=== PATIENT | female | born 1960 | race Caucasian/White ===

== ENCOUNTER 2016-07-15 21:32 | Emergency (ER) | payer OTHER ==
[~2016-07-15 21:32] MED LIST: ASPIRIN EC81 M1 PO; BLM PO; LANTUS INS100 UNITS/ SC; METOPROLOL TART25 M1 PO; NOVOLOG100 UNIT/2 SC; PRINIVIL20 M1 PO; REGLAN10 MG PO; VITAMIN D32000 I1 PO
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
[2016-07-15 23:24] LABS: ABSOLUTE BASOPHIL COUNT 0 /CUMM (0.0-0.2); ABSOLUTE EOSINOPHIL COUNT 0.1 /CUMM (0.0-0.7); ABSOLUTE GRANULOCYTE CT 9.9 /CUMM (1.4-6.5); ABSOLUTE MONOCYTE COUNT 0.8 /CUMM (0.10-0.60); BASOPHIL % 0.3 % (0.0-2.0); EOSINOPHIL % 0.4 % (0-5); GRANULOCYTE % 77.4 % (42.2-75.2); HEMATOCRIT 44.6 % (37-47); MEAN CORPUSCULAR HGB 27.6 PG (27.0-31.0); MEAN CORPUSCULAR HGB CONC 34.3 G/DL (33.0-37.0); MEAN CORPUSCULAR VOLUME 80.5 FL (81.0-99.0); MEAN PLATELET VOLUME 7.4 FL (7.4-10.4); PLATELET COUNT 245 /CUMM (130-400); RED BLOOD CELL CT 5.54 /CUMM (4.20-5.40); WHITE BLOOD CELL COUNT 12.8 /CUMM (4.8-10.8)
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
[2016-07-15 23:46] VITALS: BP 165/78
== END 2016-07-15 23:47 ==
LOC: ERH 21:32
PROVIDERS: Physician Assistant
DX: S89.92XA Unspecified injury of left lower leg, initial encounter (principal); V43.42XA Person boarding or alighting a car injured in collision with other type car, initial encounter; Y92.9 Unspecified place or not applicable
CPT/HCPCS: 73590-LT; 73610-LT

== ENCOUNTER 2016-08-07 16:07 | Emergency (ER) | payer OTHER ==
[~2016-08-07] VITALS: Ht 157.5 cm; Wt 84.8 kg
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
[2016-08-07] MEDS ORDERED: TRESIBA FL100 UNIT/1 SC (18:06)
[2016-08-07 18:38] LABS: ABSOLUTE BASOPHIL COUNT 0 /CUMM (0.0-0.2); ABSOLUTE EOSINOPHIL COUNT 0.1 /CUMM (0.0-0.7); ABSOLUTE GRANULOCYTE CT 5.7 /CUMM (1.4-6.5); ABSOLUTE LYMPH COUNT 2.8 /CUMM (1.2-3.4); ABSOLUTE MONOCYTE COUNT 0.8 /CUMM (0.10-0.60); BASOPHIL % 0.4 % (0.0-2.0); EOSINOPHIL % 1.3 % (0-5); GRANULOCYTE % 60.3 % (42.2-75.2); HEMATOCRIT 42.1 % (37-47); MEAN CORPUSCULAR HGB 27.6 PG (27.0-31.0); MEAN CORPUSCULAR HGB CONC 33.6 G/DL (33.0-37.0); MEAN CORPUSCULAR VOLUME 82.1 FL (81.0-99.0); MEAN PLATELET VOLUME 7.2 FL (7.4-10.4); PLATELET COUNT 248 /CUMM (130-400); RBC DISTRIBUTION WIDTH 14.5 % (11.5-14.5); RED BLOOD CELL CT 5.12 /CUMM (4.20-5.40); WHITE BLOOD CELL COUNT 9.4 /CUMM (4.8-10.8)
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
--- NOTE | 2016-08-07 19:09 | ULTRASOUND REPORT ---
EXAMINATION: US TRIPLEX OF LOWER EXTREMITIES, BILATERAL CLINICAL INFORMATION: Bilateral lower extremity swelling. COMPARISON: None TECHNIQUE: Color-flow triplex imaging with spectral analysis and compression Doppler were performed on the lower extremities. FINDINGS: Respiratory variation, normal compression and augmented flow are noted throughout the lower extremities. The visualized common femoral vein, superficial femoral vein, profunda femoral vein, popliteal vein and midcalf peroneal and posterior tibial venous segments show no evidence of deep venous thrombosis. There is no Hodgson's cyst. IMPRESSION: Normal triplex scan without evidence of deep venous thrombosis involving the lower extremities.
[2016-08-07] MEDS ORDERED: BACTRIM DS TAB1 EACH PO (19:58)
[2016-08-07] MEDS ORDERED: AMOXICILLIN500 M3 PO (19:58)
[2016-08-07 20:18] VITALS: BP 162/73
== END 2016-08-07 21:11 ==
LOC: ERH 16:07
PROVIDERS: Emergency Medicine
DX: L03.116 Cellulitis of left lower limb (principal)
CPT/HCPCS: 73630-RT; 93970; 96361; 96374